=== PATIENT | female | born 1975 | race Two or more races ===

== ENCOUNTER 2016-06-12 14:30 | Outpatient (CLI) | payer SELFPAY ==
[2016-06-12 15:23] LABS: SPECIFIC GRAVITY 1.015 (1.001-1.030); URINE BILIRUBIN NEGATIVE (NEGATIVE); URINE BLOOD NEGATIVE (NEGATIVE); URINE GLUCOSE (UA) NEGATIVE (NEGATIVE); URINE LEUKOCYTE ESTERASE TRACE (NEGATIVE); URINE NITRITE NEGATIVE (NEGATIVE); URINE PROTEIN TRACE (NEGATIVE); URINE UROBILINOGEN 1 mg/dL (0-1 mg/dl)
[2016-06-12 15:24] LABS: URINE APPEARANCE CLEAR; URINE COLOR AMBER
[2016-06-12 15:50] LABS: URINE BACTERIA 1+; URINE RBC 0 /hpf; URINE WBC 0-2 /hpf
[2016-06-12] MEDS ORDERED: CEPHALEXIN 500 MG CAPSULE PO ONE (16:09)
== END 2016-06-12 16:33 | disposition home or self-care (01) ==
LOC: FBCOUT 14:30 → FBC 15:11 → FBCOUT 15:11
PROVIDERS: ATTEND Family Medicine
DX: O60.00 Preterm labor without delivery, unspecified trimester (principal); Z3A.00 Weeks of gestation of pregnancy not specified
CPT/HCPCS: 87086; 81001; 59050; A9270; G0463